=== PATIENT | male | born 1995 | race Caucasian/White ===

== ENCOUNTER 2016-05-08 10:52 | Emergency (ER) | payer OTHER ==
[~2016-05-08] VITALS: Ht 167.6 cm; Wt 62.4 kg
[~2016-05-08 10:52] MED LIST: ACET-1311 PO; OXYC1TAB3 PO
[2016-05-08 11:02] VITALS: Ht 167.6 cm; Wt 62.4 kg
[2016-05-08] MEDS ORDERED: ACET-1256 PO (11:09)
[2016-05-08] MEDS ORDERED: SODIUM CHLORIDE 0.9% 1000ML 1,000 ML IV STA (11:22)
[2016-05-08] MEDS ORDERED: ONDANSETRON INJ 2 MG/ML 2 ML VIAL IV STA (11:22)
[2016-05-08] MEDS ORDERED: MoRPHine SULFATE 4 MG/ML 1 ML CARP\\VIAL IV STA (11:22)
[2016-05-08] MEDS ORDERED: KETOROLAC TROMETHAMINE 30 MG/ML VIAL IV STA (11:22)
[2016-05-08 11:49] LABS: BASO % 0.2 %; BASO ABS # 0.02 K/uL (0-0.2); COMPLETE YES; EOS % 2.5 %; HEMATOCRIT 39.9 % (42-52); IG% 0.1 %; LYMPH % 7.8 %; LYMPH ABS # 0.78 K/uL (1.2-3.4); MEAN CELL VOLUME 84.7 fL (80-100); MEAN CORPUSCULAR HEMOGLOBIN 30.6 pg (25-34); MEAN CORPUSCULAR HGB CONC 36.1 g/dl (32-36); MEAN PLATELET VOLUME 9.8 fL (7.4-10.4); MONO % 7.8 %; NEUT % 81.6 %; PLATELET COUNT 283 K/uL (130-400); RED BLOOD COUNT 4.71 M/uL (4.7-6.1); WHITE BLOOD COUNT 10.05 K/uL (4.8-10.8)
[2016-05-08] MEDS ORDERED: HYDROmorphone INJ 1 MG/ML SYR IV STA (11:57)
[2016-05-08 12:09] LABS: BUN/CREATININE RATIO 12.7 (10-20); CALCIUM 9.6 mg/dl (8.5-10.1); CREATININE 0.94 mg/dl (0.60-1.40); POTASSIUM 3.3 mmol/L (3.5-5.1)
[2016-05-08] MEDS ORDERED: CEFTRIAXONE SOD INJ 1 GM ADDVIAL IV STA (13:01)
[2016-05-08] MEDS ORDERED: AZITHROMYCIN 250 MG TAB PO STA (13:01)
--- NOTE | 2016-05-08 13:34 | Urology Consultation ---
History General Date of Service: May 08, 2016. Chief Complaint: right testicular pain Primary Care Physician: Nakia Cortés M.D. Pt seen a urologist before?: Yes ([place]) If yes, why?: Horsehoe kidney? History of Present Illness 20 yo male presents to [facility] with c/o right testicular pain that started at 4am this morning. He denies any trauma, n/v, f/c, or urinary symptoms with the pain. He has had this pain intermittently for the past month. He has been to [facility] ED on 04-11, and [place] ED on for this issue. Testicular u/s on 04-11 was normal. U/s at [place] on 04-22 showed some right epididymal fullness. He was placed on a 10 day course of doxycycline at that time, and reports some improvement in his discomfort after starting the abx. Symptoms returned this morning at 4am. The pain radiates to his right groin. The pt denies any recent unprotected intercourse. He has previously seen a urologist in [place] for what sounds like a hx of horseshoe kidney. Repeat testicular u/s pending today. Laboratory Last 24 Hours Test 05/08/16 11:35 White Blood Count 10.05 K/uL Red Blood Count 4.71 M/uL Hemoglobin 14.4 g/dL Hematocrit 39.9 % Mean Corpuscular Volume 84.7 fL Mean Corpuscular Hemoglobin 30.6 pg Mean Corpuscular Hemoglobin Concent 36.1 g/dl Platelet Count 283 K/uL Mean Platelet Volume 9.8 fL Neutrophils (%) (Auto) 81.6 % Lymphocytes (%) (Auto) 7.8 % Monocytes (%) (Auto) 7.8 % Eosinophils (%) (Auto) 2.5 % Basophils (%) (Auto) 0.2 % Neutrophils # (Auto) 8.21 K/uL Lymphocytes # (Auto) 0.78 K/uL Monocytes # (Auto) 0.78 K/uL Eosinophils # (Auto) 0.25 K/uL Basophils # (Auto) 0.02 K/uL RDW Standard Deviation 37.0 fL RDW Coefficient of Variation 12.0 % Immature Granulocyte % (Auto) 0.1 % Immature Granulocyte # (Auto) 0.01 K/uL Sodium Level 140 mmol/L Potassium Level 3.3 mmol/L Chloride Level 103 mmol/L Carbon Dioxide Level 25 mmol/L Anion Gap 12.0 mmol/L Blood Urea Nitrogen 12 mg/dl Creatinine 0.94 mg/dl Est Creatinine Clear Calc Drug Dose 109.7 ml/min Estimated GFR () 133.8 Estimated GFR (Non- 115.4 BUN/Creatinine Ratio 12.7 Random Glucose 110 mg/dl Calcium Level 9.6 mg/dl Problem List Medical Problems: (1) Right epididymitis Status: Acute Past History other (? hx of horsehoe kidney) Past Surgical History: no surgical history Family History FH: cancer FH: heart disease FH: hypertension FH: kidney disease Social History Smoking: non-smoker Alcohol: occasional Marital status: single Housing status: lives with family Occupation status: student History of MDRO No Allergies Coded Allergies: No Known Allergies (Verified , 05/08/16) Medications Home Medications: Home Meds and Scripts Medications Dose Route/Sig Max Daily Dose Days Date Category Tylenol (Acetaminophen) 500 Mg Tab 1,000 Mg PO Q4 PRN 05/08/16 Reported Review of Systems Review of Systems Constitutional: No chills, No fever Eyes: No double vision Neurological: No dizzy Endocrine: No excessive thirst Gastrointestinal: No abdominal pain, No nausea, No vomiting Cardiovascular: No chest pain Respiratory: No shortness of breath Skin: No rash Musculoskeletal: No back pain Male : No blood in urine, No painful urination Physical Exam Vital Signs: Vital Signs Past 12 Hours Date Time Temp Pulse Resp B/P Pulse Ox O2 Delivery O2 Flow Rate FiO2 05/08/16 12:10 57 18 114/80 99 Room Air 05/08/16 11:02 69 16 114/71 100 Room Air Physical Exam: General Appearance: no apparent distress Eyes: bilateral eyes normal inspection ENT: hearing grossly normal Neck: no JVD Respiratory/Chest: no respiratory distress, no accessory muscle use Cardiovascular: no JVD Genitourinary - Male: Penis: normal penis, circumcised Testes: normal testes Epididymides: tender (right) Scrotum: normal scrotum Extremities: normal inspection Neurologic/Psychiatric: alert, normal mood/affect, oriented x 3 Skin: normal color Assessment & Plan Assessment & Plan A/P: Right orchitis AFVSS. Differential dx includes right epididymitis, STI, and intermittent torsion. Case discussed with Michael BUCHANAN today. Recommend covering the pt for STI as well as 2 weeks of Cipro and an anti- inflammatory such as ibuprofen or Mobic for epididymitis. Pt warned of the potential for tendon rupture on Cipro. Return to ED for severe pain or fever. He is scheduled to f/u with Dr. Holloway on 05-19-16. Will keep this appt as scheduled. Thanks for the consult.
[2016-05-08] MEDS ORDERED: HYDROmorphone INJ 0.5 MG/0.5 ML SYR IV STA (14:02)
--- NOTE | 2016-05-08 14:21 | DIAGNOSTIC IMAGING REPORT ---
ABDOMEN ULTRASOUND FOR HERNIA CLINICAL HISTORY: Right testicular/groin pain COMPARISON STUDY: None. FINDINGS: Real-time sonographic imaging of the right lower quadrant and right inguinal regions was performed. No hernias identified. No mass or fluid collections within the abdominal wall. IMPRESSION: No right lower quadrant/right inguinal hernia identified. Electronically signed by: Heath Peñaloza M.D. 05/08/2016 2:19 PM Dictated Date/Time: 05/08/2016 2:18 PM
--- NOTE | 2016-05-08 14:27 | DIAGNOSTIC IMAGING REPORT ---
TESTICULAR ULTRASOUND HISTORY: Right testicular pain. COMPARISON: Testicular ultrasound 04/11/2016. FINDINGS: Right testis: 3.7 x 1.6 x 3.9 cm. The right testis is now slightly heterogeneous and demonstrates increased color flow. There is thickening and increased color flow within the body of the right epididymis. No hydrocele. No distinct mass is identified. Left testis: 4.4 x 1.9 x 3.2 cm. There are no intratesticular masses. Normal color flow. No hydrocele. The epididymis is unremarkable. IMPRESSION: 1. Interval development of a heterogeneous right testis which demonstrates slight increased color flow. There is also thickening and increased color flow within the body of the right epididymis. This likely represents a right-sided epididymoorchitis. Follow-up testicular ultrasound in 1 month is recommended to ensure resolution. 2. Normal left testis. Electronically signed by: Heath Peñaloza M.D. 05/08/2016 2:25 PM Dictated Date/Time: 05/08/2016 2:20 PM
[2016-05-08] MEDS ORDERED: IBUP-1451 PO (14:39)
[2016-05-08] MEDS ORDERED: OXYC1TAB3 PO (14:39)
[2016-05-08] MEDS ORDERED: CIPR-255 PO (14:39)
--- NOTE | 2016-05-08 14:44 | EMERGENCY ROOM VISIT NOTE ---
History First contact with patient: 11:05 Chief Complaint: HIP PAIN Stated Complaint: HIP PAIN History of Present Illness The patient is a 20 year old male who presents to the Emergency Room with complaints of recurrent right testicular pain extending into the hip region. The patient reports that he was here approximately one month ago with testicular pain. He reports that he did have some improvement until later in the month when he was reevaluated at the [place] emergency department. He reports epididymitis was seen on ultrasound. He also had a noncontrast CT of the abdomen and pelvis that was normal. Treated with a 2 week course of doxycycline, and did report improvement of symptoms until 2 days ago when the pain started to come back. He denies any difficulty urinating, hematuria or other urethral drainage. He denies any risk for STI. He denies any pain extending into the back. He has had no nausea, vomiting, fever or chills, and also denies any GI symptoms such as diarrhea or constipation. He denies any recent trauma to the right hip. He rates his discomfort a 10 out of 10. Review of Systems HEENT: Denies dizziness, visual problems, hearing loss, tinnitus. Denies difficulty swallowing or oral lesions. PULMONARY: Denies cough, shortness of breath, sputum production or hemoptysis. CARDIOVASCULAR: Denies chest pain, palpitations, dyspnea on exertion, orthopnea or peripheral edema. GASTROINTESTINAL: Denies diarrhea, constipation, nausea, vomiting, or abdominal pain. GENITOURINARY: Denies dysuria, frequency, urgency or nocturia. Otherwise see history of present illness. NEUROLOGIC: Denies history of epilepsy, CVA, TIA or chronic headaches. MUSCULOSKELETAL: Denies history of joint tenderness/swelling. SKIN: Denies rashes or lesions. PSYCHIATRIC: Denies history of depression or mental illness. ENDOCRINE: Denies history of diabetes or thyroid disorders. Past Medical/Surgical History Medical Problems: (1) No significant medical problems Surgical Problems: (1) History of wisdom tooth extraction (2) No significant past surgical history Family History FH: cancer FH: heart disease FH: hypertension FH: kidney disease Social History Smoking Status: Never Smoker Alcohol Use: occasionally Marital Status: single Housing Status: lives with family Occupation Status: student Current/Historical Medications Scheduled Ciprofloxacin Hcl (Cipro), 500 MG PO BID Scheduled PRN Acetaminophen (Tylenol), 1,000 MG PO Q4 PRN for Pain Ibuprofen Tab (Motrin), 800 MG PO Q8H PRN for Pain Oxycodone Ir (Roxicodone Ir), 1-2 TAB PO Q4H PRN for Pain Allergies Coded Allergies: No Known Allergies (Verified , 05/08/16) Physical Exam Vital Signs Date Time Temp Pulse Resp B/P Pulse Ox O2 Delivery O2 Flow Rate FiO2 05/08/16 12:10 57 18 114/80 99 Room Air 05/08/16 11:02 69 16 114/71 100 Room Air Physical Exam CONSTITUTIONAL: Healthy and well nourished. Alert and oriented X 3 with positive affect. He appears in moderate discomfort from pain. HEENT: Normocephalic, atraumatic. Pupils equal, round and reactive. No scleral icterus or conjunctival injection. NECK: Full active range of motion without discomfort. RESPIRATORY: Clear to auscultation bilaterally with no wheezing, crackles, rhonchi or stridor. CARDIOVASCULAR: Regular rate and rhythm with no murmurs, rubs or gallops. GASTROINTESTINAL: Bowel sounds present in all quadrants. Patient has mild suprapubic tenderness to palpation. Negative McBurney's point tenderness. Negative Pickering sign. Negative Rovsing's. Negative CVA tenderness. No rigidity, guarding or rebound. GENITOURINARY: The patient has significant tenderness to palpation of the right testicle. No palpable scrotal or inguinal canal masses. Normal phallus without urethral erythema or drainage. MUSCULOSKELETAL: Full range of motion of all joints without discomfort. Patient has minimal discomfort with flexion and extension of the right hip. INTEGUMENTARY: The patient has a few right inguinal left nodes. NEUROLOGIC: No focal neurologic deficits noted. Medical Decision & Procedures ER Provider Diagnostic Interpretation: Abdominal ultrasound for possible hernia was ordered, and did not show any evidence for hernia. Radiologist report is as follows: ABDOMEN ULTRASOUND FOR HERNIA CLINICAL HISTORY: Right testicular/groin pain COMPARISON STUDY: None. FINDINGS: Real-time sonographic imaging of the right lower quadrant and right inguinal regions was performed. No hernias identified. No mass or fluid collections within the abdominal wall. IMPRESSION: No right lower quadrant/right inguinal hernia identified. Testicular ultrasound is highly suggestive of epididymitis. Radiologist report is as follows: TESTICULAR ULTRASOUND HISTORY: Right testicular pain. COMPARISON: Testicular ultrasound 04/11/2016. FINDINGS: Right testis: 3.7 x 1.6 x 3.9 cm. The right testis is now slightly heterogeneous and demonstrates increased color flow. There is thickening and increased color flow within the body of the right epididymis. No hydrocele. No distinct mass is identified. Left testis: 4.4 x 1.9 x 3.2 cm. There are no intratesticular masses. Normal color flow. No hydrocele. The epididymis is unremarkable. IMPRESSION: 1. Interval development of a heterogeneous right testis which demonstrates slight increased color flow. There is also thickening and increased color flow within the body of the right epididymis. This likely represents a right-sided epididymoorchitis. Follow-up testicular ultrasound in 1 month is recommended to ensure resolution. 2. Normal left testis. Laboratory Results 05/08/16 11:35 Red Blood Count 4.71, Mean Corpuscular Volume 84.7, Mean Corpuscular Hemoglobin 30.6, Mean Corpuscular Hemoglobin Concent 36.1, Mean Platelet Volume 9.8, Neutrophils (%) (Auto) 81.6, Lymphocytes (%) (Auto) 7.8, Monocytes (%) (Auto) 7.8, Eosinophils (%) (Auto) 2.5, Basophils (%) (Auto) 0.2, Neutrophils # (Auto) 8.21, Lymphocytes # (Auto) 0.78, Monocytes # (Auto) 0.78, Eosinophils # (Auto) 0.25, Basophils # (Auto) 0.02 05/08/16 11:35 Test 05/08/16 11:35 White Blood Count 10.05 K/uL (4.8-10.8) Red Blood Count 4.71 M/uL (4.7-6.1) Hemoglobin 14.4 g/dL (14.0-18.0) Hematocrit 39.9 % (42-52) Mean Corpuscular Volume 84.7 fL (80-100) Mean Corpuscular Hemoglobin 30.6 pg (25-34) Mean Corpuscular Hemoglobin Concent 36.1 g/dl (32-36) Platelet Count 283 K/uL (130-400) Mean Platelet Volume 9.8 fL (7.4-10.4) Neutrophils (%) (Auto) 81.6 % Lymphocytes (%) (Auto) 7.8 % Monocytes (%) (Auto) 7.8 % Eosinophils (%) (Auto) 2.5 % Basophils (%) (Auto) 0.2 % Neutrophils # (Auto) 8.21 K/uL (1.4-6.5) Lymphocytes # (Auto) 0.78 K/uL (1.2-3.4) Monocytes # (Auto) 0.78 K/uL (0.11-0.59) Eosinophils # (Auto) 0.25 K/uL (0-0.5) Basophils # (Auto) 0.02 K/uL (0-0.2) RDW Standard Deviation 37.0 fL (36.4-46.3) RDW Coefficient of Variation 12.0 % (11.5-14.5) Immature Granulocyte % (Auto) 0.1 % Immature Granulocyte # (Auto) 0.01 K/uL (0.00-0.02) Anion Gap 12.0 mmol/L (3-11) Est Creatinine Clear Calc Drug Dose 109.7 ml/min Estimated GFR () 133.8 Estimated GFR (Non- 115.4 BUN/Creatinine Ratio 12.7 (10-20) Calcium Level 9.6 mg/dl (8.5-10.1) The above labs were reviewed. CBC is normal. Potassium 3.3. The patient was unable to provide a urine sample. Medications Administered Medications (Trade) Dose Ordered Sig/Art Route Start Time Stop Time Status Last Admin Dose Admin Sodium Chloride (Nss 1000ml) 1,000 ml @ 999 mls/hr Q1H1M STAT IV 05/08/16 11:22 05/08/16 12:22 DC 05/08/16 11:41 999 MLS/HR Ketorolac Tromethamine (Toradol Inj) 30 mg NOW STAT IV 05/08/16 11:22 05/08/16 11:25 DC 05/08/16 11:41 30 MG Morphine Sulfate (MoRPHine SULFATE INJ) 4 mg NOW STAT IV 05/08/16 11:22 05/08/16 11:25 DC 05/08/16 11:41 4 MG Ondansetron HCl (Zofran Inj) 4 mg NOW STAT IV 05/08/16 11:22 05/08/16 11:26 DC 05/08/16 11:40 4 MG Hydromorphone HCl (Dilaudid Inj) 1 mg NOW STAT IV 05/08/16 11:57 05/08/16 11:58 DC 05/08/16 12:08 1 MG Ceftriaxone Sodium (Rocephin Inj) 1 gm NOW STAT IV 05/08/16 13:01 05/08/16 13:03 DC 05/08/16 13:11 1 GM Azithromycin (Zithromax Tab) 1,000 mg NOW STAT PO 05/08/16 13:01 05/08/16 13:03 DC 05/08/16 13:11 1,000 MG Hydromorphone HCl (Dilaudid Inj) 0.5 mg NOW STAT IV 05/08/16 14:02 05/08/16 14:03 DC 05/08/16 14:08 0.5 MG Procedure 1. IV hydration: The patient received a liter normal saline bolus 2. IV medications: The patient was initially administered morphine 4 mg, Toradol 30 mg and Zofran 4 mg IVP. Without any significant relief of his discomfort, he was then administered Dilaudid 1 mg IVP. The patient did require an additional Dilaudid 0.5 mg IVP while waiting for ultrasound to be performed. ED Course Patient history and physical exam were performed. Nurse's notes were reviewed. Vital signs were reviewed and were normal. I also reviewed the patient's documentation from his prior visit with me on 04/11/16. It is noted that his testicular ultrasound at that time was normal. I also requested and received documentation from the [place] emergency department visit on 04/22/16. Ultrasound at that time showed an elevation as appearance of the right epididymis with hyperemic flow, raising suspicion for acute epididymitis. Normal testicular Doppler evaluation was noted. IV access was established, and labs were drawn. The patient was hydrated with normal saline, and received IV analgesics/antiemetics as discussed in the previous Procedure section. Review of labs shows no leukocytosis or electrolyte abnormality. The patient was initially unable to provide a urine sample. I did review findings with both the patient and mother from the [place] emergency department. I did suggest repeating the ultrasound. I also re- questioned the patient regarding his sexual history, and he again denies any risk for STI. I did elect to treat the patient with Rocephin 1 g IV and Zithromax 1 g orally. At this time, the mother reports that she works at the outpatient surgery center , and discussed the case with Dr. Holloway, with whom the patient has an appointment scheduled for 05/19/16. Shortly thereafter, JUSTIN Bernardo with their group also presented to the patient's room. I reviewed documentation from the [place] emergency department. She also agreed with repeating the ultrasound and treatment with Rocephin and Zithromax. If ultrasound studies are unchanged, she suggested treating the patient with Cipro antibiotics and NSAIDs. Ultrasound today showed evidence for epididymitis, and no obvious evidence for torsion, although this could be intermittent. The patient rated his pain a 5 out of 10 at the time of discharge. The patient was provided prescriptions for Cipro 500 mg, Motrin 800 mg and OxyIR 5 mg. He will follow-up with Dr. dempsey as scheduled, and was encouraged to call them if the pain persists. Return to the emergency department for developing fever or significant escalation of pain that he is unable to control at home. The patient was happy with plan of care, voiced understanding of all discharge instructions, and was discharged with family. Medical Decision Patient presents with complaint of intermittent right testicular pain. His last 2 ultrasounds are suggestive of epididymitis. No torsion is noted, although this could be intermittent. He has no evidence for torsion on today's ultrasound. Ultrasound also does not show any evidence for hernia. Orchitis, UTI and renal colic were also entertained. Impression Primary Impression: Right epididymitis Departure Information Prescriptions Ibuprofen Tab (MOTRIN) 800 Mg Tab 800 MG PO Q8H Y for Pain, #30 TAB Prov: Mihcael Tracey PA 05/08/16 Oxycodone Ir (Roxicodone Ir) 5 Mg Tab 1-2 TAB PO Q4H Y for Pain, #24 TAB For Initial Treatment Prov: Michael Tracey PA 05/08/16 Ciprofloxacin Hcl (CIPRO) 500 Mg Tab 500 MG PO BID for 14 Days, #28 TAB Prov: Michael Tracey PA 05/08/16 Referrals Nakia Cortés M.D. (PCP) Patient Instructions A Signature Page, [facility]
[2016-05-08 14:56] VITALS: BP 117/64; PULSE 66; O2SAT 99
[2016-05-08 15:28] LABS: URINE APPEARANCE CLOUDY (CLEAR); URINE BILIRUBIN NEG (NEG); URINE COLOR YELLOW; URINE EPITHELIAL CELL AUTO >30 /lpf (0-5); URINE NITRITE NEG (NEG); URINE SPECIFIC GRAVITY 1.023 (1.000-1.030); UROBILINOGEN NEG (NEG)
[2016-05-08 15:50] LABS: MANUAL MICROSCOPIC REQUIRED? NO; REVIEW REQ? YES
[2016-05-08 16:04] LABS: ZZUR CULT IF INDIC CLEAN CATCH YES
== END 2016-05-08 14:57 | disposition home or self-care (01) ==
LOC: C.EDB 10:54 → C.EDC 14:57
DX: N45.1 Epididymitis (principal)